=== PATIENT | male | born 1970 | race Caucasian/White ===

== ENCOUNTER 2017-10-26 21:22 | Emergency (ER) | payer BC ==
[2017-10-26] MEDS ORDERED: Ketorolac Tromethamine 60 MG/2 ML VIAL ONE (22:01)
--- NOTE | 2017-10-26 22:45 | RAD ---
RIGHT ELBOW: 10/26/17 Four views. HISTORY: Elbow pain. FINDINGS: There is stippled calcification in the soft tissues lateral to the joint space. This may represent pr ior collateral ligament injury. There is no evidence of acute fracture identified. No evidence of kim nt effusion. IMPRESSION: Soft tissue calcifications along the lateral joint space. Calcific tendinosis or extra-osseous calcif ication from prior soft tissue injury are considerations. Further evaluation with MRI might be of clary efit as indicated. POS: [facility]
== END 2017-10-26 22:57 | disposition home or self-care (01) ==
LOC: MADERS 21:22
DX: M65.28 Calcific tendinitis, other site (principal); F17.210 Nicotine dependence, cigarettes, uncomplicated
CPT/HCPCS: 96372; J1885

== ENCOUNTER 2021-12-10 17:25 | Emergency (ER) | payer BC | END 2021-12-10 18:30 | disposition home or self-care (01) | LOC: MADERS 17:25 | DX: S93.401A Sprain of unspecified ligament of right ankle, initial encounter (principal); S96.911A Strain of unspecified muscle and tendon at ankle and foot level, right foot, initial encounter; F17.220 Nicotine dependence, chewing tobacco, uncomplicated; X58.XXXA Exposure to other specified factors, initial encounter ==